=== PATIENT | female | born 1945 | race African-American/Black ===

== ENCOUNTER 2017-02-26 18:47 | Inpatient (IN) | payer MEDICARE ==
[~2017-02-26] VITALS: Ht 175.3 cm; Wt 129.3 kg
[2017-02-26] MEDS ORDERED: PREG75CA PO (18:55)
[2017-02-26] MEDS ORDERED: LISI-186 PO (18:55)
[2017-02-26] MEDS ORDERED: METF500T4 PO (18:55)
[2017-02-26] MEDS ORDERED: PANT40TA4 PO (18:56)
[2017-02-26] MEDS ORDERED: APIX5TAB PO (18:56)
[2017-02-26] MEDS ORDERED: METO50TA5 PO (18:56)
[2017-02-26] MEDS ORDERED: FURO20TA4 PO (18:56)
[2017-02-27] MEDS ORDERED: TRAMADOL 50MG TABLET PO ONE (01:00)
[2017-02-27 08:51] LABS: BASOPHILS % 0.4 % (0.0-2.0); EOSINOPHILS % 3.5 % (0.0-5.0); HEMATOCRIT. 41.4 % (36.0-48.0); HEMOGLOBIN. 13.4 g/dL (12.0-16.0); LYMPHOCYTES % 24.8 % (20.0-50.0); MEAN CORPUSCULAR HEMOGLOBIN 29.4 pg (28.0-32.0); MEAN CORPUSCULAR VOLUME 90.6 fL (81.0-99.0); MEAN PLATELET VOLUME 9.3 fl (7.4-10.4); MONOCYTES % 10.4 % (2.0-8.0); NEUTROPHILS % 60.9 % (40.0-76.0); PLATELET 258 x1000/uL (130-400); RED BLOOD CELL COUNT 4.57 mill/uL (4.2-5.4); RED CELL DISTRIBUTION WIDTH 14.8 % (11.6-14.6)
[2017-02-27 09:10] LABS: CARBON DIOXIDE 34 mEq/L (21-32); CHLORIDE 104 mEq/L (98-107)
[2017-02-27] MEDS ORDERED: ACETAMINOPHEN 325MG TABLET PO PRN (14:15)
[2017-02-27] MEDS ORDERED: IPRATROPIUM/ALBUTEROL 0.5-3(2.5)MG/3ML NEB INH PRN (14:15)
[2017-02-27] MEDS ORDERED: ONDANSETRON HCL 4MG/2ML VIAL IV PRN (14:15)
[2017-02-27] MEDS ORDERED: CLONIDINE 0.1MG TABLET PO PRN (14:15)
[2017-02-27] MEDS ORDERED: DIPHENHYDRAMINE 50MG/ML VIAL IV PRN (14:15)
[2017-02-27] MEDS ORDERED: DEXTROSE 50% WATER 50ML SYRINGE IV PRN (14:15)
[2017-02-27 17:10] VITALS: BP 134/89
[2017-02-27 17:11] VITALS: BP 134/89
[2017-02-27] MEDS: BLOOD SUGAR DIAGNOSTIC STRIP TEST SCH ×3 (17:19→21:00)
[2017-02-27] MEDS: INSULIN LISPRO 100 UNITS/ML SUBCUT SCH ×2 (17:19→21:00)
[2017-02-27] MEDS ORDERED: OCD PO (18:15)
[2017-02-27] MEDS: HYDROCODONE/ACETAMINOPHEN 5/325MG TABLET PO PRN ×2 (18:37→22:53)
[2017-02-27 20:00] VITALS: BP 127/76
[2017-02-28] VITALS: BP 144/91
[2017-02-28] MEDS: HYDROCODONE/ACETAMINOPHEN 5/325MG TABLET PO PRN ×3 (03:15→18:36)
[2017-02-28 04:00] VITALS: BP 149/95
[2017-02-28] MEDS: BLOOD SUGAR DIAGNOSTIC STRIP TEST SCH ×4 (06:37→21:43)
[2017-02-28 06:40] LABS: BASOPHILS % 0.9 % (0.0-2.0); EOSINOPHILS % 3.9 % (0.0-5.0); HEMATOCRIT. 41.1 % (36.0-48.0); HEMOGLOBIN. 13.4 g/dL (12.0-16.0); LYMPHOCYTES % 17.2 % (20.0-50.0); MEAN CORPUSCULAR HEMOGLOBIN 29.8 pg (28.0-32.0); MEAN CORPUSCULAR VOLUME 90.8 fL (81.0-99.0); MEAN PLATELET VOLUME 9.6 fl (7.4-10.4); MONOCYTES % 11.5 % (2.0-8.0); NEUTROPHILS % 66.5 % (40.0-76.0); PLATELET 248 x1000/uL (130-400); RED BLOOD CELL COUNT 4.52 mill/uL (4.2-5.4)
[2017-02-28] MEDS: PANTOPRAZOLE 40MG DR TABLET PO SCH ×2 (06:46→20:02)
[2017-02-28 07:01] LABS: CARBON DIOXIDE 32 mEq/L (21-32); CHLORIDE 103 mEq/L (98-107)
[2017-02-28 07:06] LABS: HDL CHOLESTEROL 40 mg/dL (40-59); LDL CHOLESTEROL 88 mg/dL (5-100); TROPONIN I < 0.02 ng/mL (0.00-0.04)
[2017-02-28] MEDS: INSULIN LISPRO 100 UNITS/ML SUBCUT SCH ×4 (07:50→21:00)
[2017-02-28 08:00] VITALS: BP 139/91
[2017-02-28] MEDS: METFORMIN HCL 500MG TABLET PO SCH ×2 (08:37→16:24)
[2017-02-28] MEDS: PREGABALIN 75MG CAPSULE PO SCH ×2 (08:37→20:03)
[2017-02-28] MEDS: FUROSEMIDE 40MG TABLET PO SCH (08:37)
[2017-02-28] MEDS: LISINOPRIL 5MG TABLET PO SCH (08:38)
[2017-02-28] MEDS: APIXABAN 5 MG TABLET PO SCH ×2 (08:38→16:21)
[2017-02-28] MEDS: METOPROLOL TARTRATE 50MG TABLET PO SCH ×2 (08:38→20:03)
[2017-02-28] MEDS: CALCIUM CARBONATE/VITAMIN D3 500MG TABLET PO SCH ×2 (08:38→16:24)
[2017-02-28 12:00] VITALS: BP 140/80
[2017-02-28] MEDS ORDERED: METHYLPREDNISOLONE SOD SUCC 40 MG/ML VIAL IV NR (14:16)
[2017-02-28 16:00] VITALS: BP 148/95
[2017-02-28] MEDS: COLCHICINE 0.6MG TABLET PO SCH ×2 (16:21→21:41)
[2017-02-28 20:00] VITALS: BP 144/73
[2017-03-01] VITALS: BP 144/72
[2017-03-01 04:00] VITALS: BP 161/73
[2017-03-01] MEDS: COLCHICINE 0.6MG TABLET PO SCH (06:12)
[2017-03-01] MEDS: PANTOPRAZOLE 40MG DR TABLET PO SCH (06:20)
[2017-03-01] MEDS: BLOOD SUGAR DIAGNOSTIC STRIP TEST SCH ×3 (06:20→17:20)
[2017-03-01] MEDS: INSULIN LISPRO 100 UNITS/ML SUBCUT SCH ×3 (07:50→17:22)
[2017-03-01 08:00] VITALS: BP 151/85
[2017-03-01] MEDS: METFORMIN HCL 500MG TABLET PO SCH ×2 (09:58→16:53)
[2017-03-01] MEDS: FUROSEMIDE 40MG TABLET PO SCH (09:58)
[2017-03-01] MEDS: CALCIUM CARBONATE/VITAMIN D3 500MG TABLET PO SCH ×2 (09:58→16:54)
[2017-03-01] MEDS: APIXABAN 5 MG TABLET PO SCH ×2 (09:58→16:52)
[2017-03-01] MEDS: LISINOPRIL 5MG TABLET PO SCH (09:59)
[2017-03-01] MEDS: METOPROLOL TARTRATE 50MG TABLET PO SCH (10:00)
[2017-03-01] MEDS: PREGABALIN 75MG CAPSULE PO SCH (10:00)
[2017-03-01] MEDS: HYDROCODONE/ACETAMINOPHEN 5/325MG TABLET PO PRN (10:35)
[2017-03-01 12:00] VITALS: BP 145/88
[2017-03-01] MEDS ORDERED: METHYLPREDNISOLONE SOD SUCC 125 MG/2 ML VIAL IV NR (14:30)
[2017-03-01 16:00] VITALS: BP_SYST 151; BP_SYST 161; BP_DIAS 73; BP_DIAS 87
[2017-03-01] MEDS ORDERED: COLCHICINE 0.6MG TABLET PO SCH (17:00)
[2017-03-01 18:01] VITALS: BP 151/87
== END 2017-03-01 17:15 | DRG 554 ==
LOC: ER 18:47 → 6EST 02-27 04:32 → EDBEDREQ 02-27 04:43 → ENRESERV 02-27 15:38 → CANBEDREQ 02-27 16:11
PROVIDERS: ADMIT Internal Medicine; ATTEND Internal Medicine
DX: M10.9 Gout, unspecified (principal); N17.9 Acute kidney failure, unspecified; E11.22 Type 2 diabetes mellitus with diabetic chronic kidney disease; I48.0 Paroxysmal atrial fibrillation; I13.0 Hypertensive heart and chronic kidney disease with heart failure and stage 1 through stage 4 chronic kidney disease, or unspecified chronic kidney disease; I50.9 Heart failure, unspecified; Z68.41 Body mass index [BMI] 40.0-44.9, adult; E66.9 Obesity, unspecified; I25.10 Atherosclerotic heart disease of native coronary artery without angina pectoris; E78.5 Hyperlipidemia, unspecified; N18.9 Chronic kidney disease, unspecified; M19.90 Unspecified osteoarthritis, unspecified site; S96.812A Strain of other specified muscles and tendons at ankle and foot level, left foot, initial encounter; Z79.899 Other long term (current) drug therapy; Y93.89 Activity, other specified; Y92.89 Other specified places as the place of occurrence of the external cause; Y99.8 Other external cause status; Z82.49 Family history of ischemic heart disease and other diseases of the circulatory system
CPT/HCPCS: 36415; 73630; 80053; 80061; 82962; 83036; 84484; 84550; 85025; 87040; 87086; 93970; 97110; 97162; 97530; 99285; J2920; J2930

== ENCOUNTER 2017-06-18 13:30 | Observation (INO) | payer MEDICARE ==
[~2017-06-18] VITALS: Ht 175.3 cm; Wt 126.6 kg
[~2017-06-18 13:30] MED LIST: APIX5TAB PO; FURO20TA4 PO; LISI-186 PO; METF500T4 PO; METO-539 PO; OCD PO; PANT40TA4 PO; PREG75CA PO
[2017-06-18 14:49] LABS: EOSINOPHILS % 2.8 % (0.0-5.0); HEMATOCRIT. 48.7 % (36.0-48.0); HEMOGLOBIN. 15.6 g/dL (12.0-16.0); LYMPHOCYTES % 26.4 % (20.0-50.0); MEAN CORPUSCULAR HEMOGLOBIN 29.5 pg (28.0-32.0); MEAN PLATELET VOLUME 9.9 fl (7.4-10.4); MONOCYTES % 10.9 % (2.0-8.0); NEUTROPHILS % 58.9 % (40.0-76.0); PLATELET 212 x1000/uL (130-400); RED BLOOD CELL COUNT 5.29 mill/uL (4.2-5.4); RED CELL DISTRIBUTION WIDTH 16.3 % (11.6-14.6)
[2017-06-18 14:58] LABS: INR 1.1; PARTIAL THROMBOPLASTIN TIME 26.7 sec (23.4-31.0); PROTHROMBIN TIME 11.2 sec (9.4-11.6)
[2017-06-18 15:06] LABS: CARBON DIOXIDE 32 mEq/L (21-32); CHLORIDE 107 mEq/L (98-107); TROPONIN I < 0.02 ng/mL (0.00-0.04)
[2017-06-18] MEDS ORDERED: PANT40TA4 PO (22:04)
[2017-06-18] MEDS ORDERED: COLC0.6T66 PO (22:04)
[2017-06-18 22:06] VITALS: BP 158/107
[2017-06-18 22:11] VITALS: BP 158/107
[2017-06-18] MEDS ORDERED: DEXTROSE 50% WATER 50ML SYRINGE IV PRN (23:00)
[2017-06-18] MEDS ORDERED: TEMAZEPAM 15MG CAPSULE PO PRN (23:00)
[2017-06-18] MEDS ORDERED: ACETAMINOPHEN 325MG TABLET PO PRN (23:00)
[2017-06-19 04:00] VITALS: BP 156/112
[2017-06-19] MEDS: FUROSEMIDE 40MG/4ML VIAL IVP SCH ×2 (05:22→17:22)
[2017-06-19] MEDS: BLOOD SUGAR DIAGNOSTIC STRIP TEST SCH ×3 (06:05→17:21)
[2017-06-19] MEDS: INSULIN LISPRO 100 UNITS/ML SUBCUT SCH ×3 (07:56→17:21)
[2017-06-19 08:00] VITALS: BP 141/86
[2017-06-19] MEDS: COLCHICINE 0.6MG TABLET PO SCH ×2 (08:13→17:22)
[2017-06-19] MEDS: PREGABALIN 75MG CAPSULE PO SCH ×2 (08:14→17:22)
[2017-06-19] MEDS: APIXABAN 5 MG TABLET PO SCH ×2 (08:14→17:26)
[2017-06-19] MEDS: METFORMIN HCL 500MG TABLET PO SCH ×2 (08:14→17:22)
[2017-06-19 08:48] LABS: EOSINOPHILS % 2.7 % (0.0-5.0); HEMOGLOBIN. 15.8 g/dL (12.0-16.0); LYMPHOCYTES % 28.1 % (20.0-50.0); MEAN CORPUSCULAR HEMOGLOBIN 29.5 pg (28.0-32.0); MEAN CORPUSCULAR VOLUME 91.4 fL (81.0-99.0); MEAN PLATELET VOLUME 10.1 fl (7.4-10.4); MONOCYTES % 10.1 % (2.0-8.0); NEUTROPHILS % 58.1 % (40.0-76.0); PLATELET 205 x1000/uL (130-400); RED BLOOD CELL COUNT 5.36 mill/uL (4.2-5.4); RED CELL DISTRIBUTION WIDTH 16.1 % (11.6-14.6)
[2017-06-19] MEDS ORDERED: CALCIUM CARBONATE/VITAMIN D3 500MG TABLET PO SCH (09:00)
[2017-06-19] MEDS ORDERED: PANTOPRAZOLE 40MG DR TABLET PO SCH (09:00)
[2017-06-19] MEDS ORDERED: LISINOPRIL 10MG TABLET PO SCH (09:00)
[2017-06-19] MEDS ORDERED: METOPROLOL TARTRATE 50MG TABLET PO SCH (09:00)
[2017-06-19 09:08] LABS: CARBON DIOXIDE 31 mEq/L (21-32); CHLORIDE 105 mEq/L (98-107); HDL CHOLESTEROL 53 mg/dL (40-59); LDL CHOLESTEROL 82 mg/dL (5-100); T4 FREE 0.99 ng/dL (0.76-1.46)
[2017-06-19] MEDS ORDERED: INFLUENZA VIRUS VACCINE 0.5ML SYR IM ONE (10:00)
[2017-06-19 12:00] VITALS: BP 139/91
[2017-06-19 16:00] VITALS: BP 142/96
[2017-06-19] MEDS ORDERED: IOHEXOL-350 100 ML BOTTLE ONE (16:46)
[2017-06-19 18:32] VITALS: BP 140/91
[2017-06-20] MEDS ORDERED: LISINOPRIL 20MG TABLET PO SCH (09:00)
== END 2017-06-19 20:00 | disposition home or self-care (01) ==
LOC: ER 13:30 → 7WST 18:34 → INTOOBSV 18:34 → EDBEDREQ 18:37 → ENRESERV 18:55 → 7WST 06-19 02:47
PROVIDERS: ADMIT Internal Medicine; ATTEND Internal Medicine
DX: R06.02 Shortness of breath (principal); I11.9 Hypertensive heart disease without heart failure; E11.42 Type 2 diabetes mellitus with diabetic polyneuropathy; E66.01 Morbid (severe) obesity due to excess calories; M10.9 Gout, unspecified; M19.90 Unspecified osteoarthritis, unspecified site; Z23 Encounter for immunization
CPT/HCPCS: 36415; 71045; 71275; 80048; 80053; 80061; 82962; 83690; 83880; 84439; 84443; 84484; 85025; 85610; 85730; 90471; 93005; 93306; 96374; 96376; 99285; G0378; J1940; Q9967; 90686

== ENCOUNTER 2018-10-30 01:32 | Emergency (ER) | payer MEDICARE ==
[~2018-10-30] VITALS: Ht 167.6 cm; Wt 118.0 kg
[~2018-10-30 01:32] MED LIST changes: +COLC0.6T66 PO; +METF-414 PO; -METF500T4 PO
[2018-10-30 02:49] LABS: CLARITY URINE CLEAR (CLEAR); COLOR URINE YELLOW (YELLOW); KETONES URINE NEGATIVE (NEGATIVE); LEUKOCYTE ESTERASE URINE 2+ (NEGATIVE); NITRITE URINE NEGATIVE (NEGATIVE); OCCULT BLOOD URINE 2+ (NEGATIVE); PH URINE 5.5 (4.5-8.0); PROTEIN URINE NEGATIVE (NEGATIVE); SPECIFIC GRAVITY URINE 1.013 (1.005-1.030)
[2018-10-30] MEDS ORDERED: KETOROLAC 15MG/ML VIAL IM ONE (05:30)
[2018-10-30 05:52] LABS: BASOPHILS % 0.9 % (0.0-2.0); EOSINOPHILS % 2.8 % (0.0-5.0); HEMATOCRIT. 44.1 % (36.0-48.0); HEMOGLOBIN. 14.6 g/dL (12.0-16.0); LYMPHOCYTES % 19.7 % (20.0-50.0); MEAN CORPUSCULAR HEMOGLOBIN 30.1 pg (28.0-32.0); MEAN CORPUSCULAR VOLUME 91.1 fL (81.0-99.0); MEAN PLATELET VOLUME 9.9 fl (7.4-10.4); MONOCYTES % 14.9 % (2.0-8.0); NEUTROPHILS % 61.7 % (40.0-76.0); PLATELET 201 x1000/uL (130-400); RED BLOOD CELL COUNT 4.84 mill/uL (4.2-5.4); RED CELL DISTRIBUTION WIDTH 14.8 % (11.6-14.6)
[2018-10-30 05:55] LABS: CHLORIDE 108 mEq/L (98-107)
[2018-10-30] MEDS ORDERED: CEFTRIAXONE 1 G PREMIX 50 ML IV ONE (08:15)
[2018-10-30] MEDS ORDERED: MORPHINE SULFATE 4 MG/ML CPJ (NOT FOR IM USE) IV ONE (08:30)
[2018-10-30 12:15] VITALS: BP 143/89
== END 2018-10-30 12:30 | disposition short-term general hospital (02) ==
LOC: ER 01:32
DX: R53.1 Weakness (principal); N39.0 Urinary tract infection, site not specified; M54.5 Low back pain; R26.2 Difficulty in walking, not elsewhere classified; E11.9 Type 2 diabetes mellitus without complications; I11.0 Hypertensive heart disease with heart failure; I50.9 Heart failure, unspecified; Z79.84 Long term (current) use of oral hypoglycemic drugs
CPT/HCPCS: 36415; 71045; 74176; 80053; 81003; 85025; 87086; 93005; 96365; 96372; 96375; 99285; J0696; J1885; J2270